=== PATIENT | female | born 1930 | race Caucasian/White ===

== ENCOUNTER 2020-06-09 14:04 | Emergency (ER) | payer OTHER, MEDICARE ==
[2020-06-09 14:15] VITALS: BMI 20.2
[2020-06-09 14:53] LABS: EOS % 0.8 % (0-4.5); HEMATOCRIT 34.7 % (32.4-45.2); HEMOGLOBIN 10.9 GM/dl (10.7-15.3); LYMPH % 17.2 % (8-40); MCH 29.2 pg (25.7-33.7); MCHC 31.6 g/dl (32.0-36.0); MEAN CELL VOLUME 92.4 fl (80-96); MEAN PLT VOLUME 8.5 fl (7.5-11.1); MONO % 3.5 % (3.8-10.2); NEUT % 77.5 % (42.8-82.8); PLATELET COUNT 278 K/MM3 (134-434); RBC 3.75 M/mm3 (3.60-5.2); RDW 12.8 % (11.6-15.6)
[2020-06-09 15:00] LABS: EPITHELIAL CELLS MODERATE /hpf
[2020-06-09 15:01] LABS: ALBUMIN 2.6 g/dl (3.4-5.0); BILIRUBIN,TOTAL 0.7 mg/dl (0.2-1); CALCIUM 9.6 mg/dl (8.5-10); CREATININE 1.5 mg/dl (0.55-1.3); POTASSIUM 4.4 mmol/L (3.5-5.1); TOT PROT 6.5 g/dl (6.4-8.2)
[2020-06-09] MEDS ORDERED: SODIUM CHLORIDE 500 ML IV STA (15:20)
[2020-06-09 16:47] VITALS: BP 159/90; PULSE 70; TEMP 98.6
== END 2020-06-09 18:07 | disposition home or self-care (01) ==
LOC: FER 14:04
PROC: 3E0337Z Introduction of Electrolytic and Water Balance Substance into Peripheral Vein, Percutaneous Approach (ICD-10-PCS; principal; 2020-06-09)
DX: N39.0 Urinary tract infection, site not specified (principal); E86.0 Dehydration; F03.90 Unspecified dementia, unspecified severity, without behavioral disturbance, psychotic disturbance, mood disturbance, and anxiety
CPT/HCPCS: 36415; 71045-TC-FY; 80053; 81003; 81015; 82550; 84484; 85025; 87086; 87186; 93005; 99285-25; C9803; U0003

== ENCOUNTER 2020-07-13 22:02 | Inpatient (IN) | payer OTHER, MEDICARE ==
[2020-07-13 22:35] VITALS: BMI 19.5
[2020-07-13] MEDS ORDERED: LIDOCAINE VISCOUS 2% ORAL/TOP 20 ML UNIT-DOSE CUP MM ONE (23:35)
[2020-07-13] MEDS ORDERED: MAG HYDROX/AL HYDROX/SIMETH 30 ML UNIT-DOSE CUP PO ONE (23:35)
[2020-07-13] MEDS ORDERED: LIDOCAINE VISCOUS 2% ORAL/TOP 20 ML UNIT-DOSE CUP ONE (23:39)
[2020-07-13] MEDS ORDERED: MAG HYDROX/AL HYDROX/SIMETH 30 ML UNIT-DOSE CUP ONE (23:39)
[2020-07-14] MEDS ORDERED: SODIUM CHLORIDE 1,000 ML IV STA (00:39)
[2020-07-14 01:11] LABS: BASO % 0.2 % (0-2.0); EOS % 0.3 % (0-4.5); HEMATOCRIT 27.6 % (32.4-45.2); LYMPH % 20.9 % (8-40); MCH 30.5 pg (25.7-33.7); MCHC 32.8 g/dl (32.0-36.0); MEAN CELL VOLUME 93.1 fl (80-96); MEAN PLT VOLUME 9.7 fl (7.5-11.1); NEUT % 74.6 % (42.8-82.8); PLATELET COUNT 226 K/MM3 (134-434); RBC 2.96 M/mm3 (3.60-5.2); RDW 15.4 % (11.6-15.6); WHITE BLOOD COUNT 15.8 K/mm3 (4.0-10.0)
[2020-07-14 01:17] LABS: ALBUMIN 2.8 g/dl (3.4-5.0); ANION GAP 15 MMOL/L (8-16); CHLORIDE 87 mmol/L (98-107); CO2 20 mmol/L (21-32); CREATININE 1.7 mg/dL (0.55-1.3); GLUCOSE,RANDOM 89 mg/dL (74-106); POTASSIUM 3.7 mmol/L (3.5-5.1); SGOT/AST 38 U/L (15-37); SGPT/ALT 7 U/L (13-61); SODIUM 121 mmol/L (136-145)
[2020-07-14 01:20] LABS: ALK PHOS 101 U/L (45-117); BILIRUBIN,TOTAL 0.6 mg/dL (0.2-1); TOT PROT 6.4 g/dl (6.4-8.2)
[2020-07-14] MEDS ORDERED: DEXTROSE 5%-NORMAL SALINE 1,000 ML IV SCH (02:15)
[2020-07-14 05:12] LABS: ANISOCYTOSIS 1+; MACROCYTOSIS 0; PLATELET ESTIMATE NORMAL
[2020-07-14] MEDS ORDERED: VANCOMYCIN 1 GM in D5W (PRE-DOCKED) 1,000 MG/250 ML IVPB ONE (06:28)
[2020-07-14] MEDS ORDERED: VANCOMYCIN 1 GRAM (PRE-DOCKED) 1,000 MG/250 ML BAG IVPB ONE (07:00)
[2020-07-14] MEDS: LEVOTHYROXINE NA 25 MCG TABLET (FP) PO SCH (07:30)
[2020-07-14 09:10] LABS: CALCIUM 8.1 mg/dl (8.5-10); CREATININE 1.2 mg/dl (0.55-1.3); MAGNESIUM 1.5 mg/dL (1.8-2.4); POTASSIUM 2.9 mmol/L (3.5-5.1)
[2020-07-14] MEDS: HEPARIN NA (PORCINE) 5,000 UNITS/ML 1ML VIAL SQ SCH ×2 (09:44→16:59)
[2020-07-14] MEDS ORDERED: MAGNESIUM SULF 50% (8.12 MEQ/2 ML-1 GM VIAL) IVPB ONE (10:42)
[2020-07-14] MEDS ORDERED: SODIUM CHLORIDE 1,000 ML IV SCH (10:45)
[2020-07-14] MEDS ORDERED: MAGNESIUM SULFATE IN WATER 2 GM/50 ML IVPB IVPB ONE (11:00)
[2020-07-14] MEDS: KCL 10 MEQ IVPB 10 MEQ/100 ML INFUS.BAG IVPB SCH ×3 (11:52→14:51)
[2020-07-14] MEDS ORDERED: POTASSIUM CHLORIDE ORAL LIQUID 20 MEQ/15 ML PO ONE ×2 (14:15→17:33)
[2020-07-14] MEDS: PANTOPRAZOLE 40 MG TABLET PO SCH (17:41)
[2020-07-15] MEDS: HEPARIN NA (PORCINE) 5,000 UNITS/ML 1ML VIAL SQ SCH ×3 (01:35→18:08)
[2020-07-15] MEDS: LEVOTHYROXINE NA 25 MCG TABLET (FP) PO SCH (06:26)
[2020-07-15 07:58] LABS: EOS % 2.1 % (0-4.5); HEMATOCRIT 24.5 % (32.4-45.2); HEMOGLOBIN 8.1 GM/dl (10.7-15.3); LYMPH % 31.5 % (8-40); MCH 30.9 pg (25.7-33.7); MCHC 33.2 g/dl (32.0-36.0); MEAN CELL VOLUME 93.1 fl (80-96); MONO % 5.6 % (3.8-10.2); NEUT % 60.2 % (42.8-82.8); PLATELET COUNT 175 K/MM3 (134-434); RBC 2.63 M/mm3 (3.60-5.2); RDW 14.9 % (11.6-15.6); WHITE BLOOD COUNT 7.6 K/mm3 (4.0-10.8)
[2020-07-15 09:42] LABS: ALBUMIN 2.4 g/dl (3.4-5.0); BILIRUBIN,TOTAL 0.8 mg/dl (0.2-1); CALCIUM 8.5 mg/dl (8.5-10); CREATININE 1.2 mg/dl (0.55-1.3); POTASSIUM 4.2 mmol/L (3.5-5.1); TOT PROT 4.7 g/dl (6.4-8.2)
[2020-07-15] MEDS ORDERED: HYDROCHLOROTHIAZIDE 12.5 MG CAPSULE (FP) PO SCH (10:00)
[2020-07-15] MEDS ORDERED: PATIENT'S OWN MEDICATION (NON-FORMULARY) (Valsartan/Hydrochlorothiazide [Valsartan-Hctz 32 PO SCH (10:00)
[2020-07-15] MEDS ORDERED: VALSARTAN 160 MG TABLET PO SCH (10:00)
[2020-07-15] MEDS: SERTRALINE HCL 25 MG TABLET (FP) PO SCH (11:04)
[2020-07-15] MEDS: MEMANTINE HCL 10 MG TABLET (FP) PO SCH (11:04)
[2020-07-15] MEDS: PANTOPRAZOLE 40 MG TABLET PO SCH (11:04)
[2020-07-16] MEDS: HEPARIN NA (PORCINE) 5,000 UNITS/ML 1ML VIAL SQ SCH ×2 (02:10→12:05)
[2020-07-16] MEDS: LEVOTHYROXINE NA 25 MCG TABLET (FP) PO SCH (06:23)
[2020-07-16 10:58] LABS: ACTIVATED PTT 66.6 SECONDS (25.2-36.5); INR 1.12 (0.82-1.09); PROTHROMBIN TIME (PATIENT) 12.4 SEC (10.2-13.0)
[2020-07-16 11:02] LABS: HEMATOCRIT 26.3 % (32.4-45.2); HEMOGLOBIN 8.9 GM/dl (10.7-15.3); MCH 31.5 pg (25.7-33.7); MEAN CELL VOLUME 92.6 fl (80-96); MEAN PLT VOLUME 8.9 fl (7.5-11.1); PLATELET COUNT 208 K/MM3 (134-434); RBC 2.84 M/mm3 (3.60-5.2); RDW 15.1 % (11.6-15.6); WHITE BLOOD COUNT 8.4 K/mm3 (4.0-10.8)
[2020-07-16 11:30] LABS: PLATELET ESTIMATE ADEQUATE
[2020-07-16 11:31] LABS: ANISOCYTOSIS FEW; OVALOCYTE FEW
[2020-07-16] MEDS: SERTRALINE HCL 25 MG TABLET (FP) PO SCH (12:05)
[2020-07-16] MEDS: MEMANTINE HCL 10 MG TABLET (FP) PO SCH (12:05)
[2020-07-16] MEDS: PANTOPRAZOLE 40 MG TABLET PO SCH (12:06)
[2020-07-16 12:18] LABS: CHLORIDE 103 mmol/L (98-107); SODIUM 136 mmol/L (136-145)
[2020-07-16 12:21] LABS: ALBUMIN 2.6 g/dl (3.4-5.0); ANION GAP 8 MMOL/L (8-16); BLOOD UREA NITROGEN 14.2 mg/dL (7-18); CALCIUM 9.1 mg/dL (8.5-10.1); CO2 25 mmol/L (21-32); GLUCOSE,RANDOM 91 mg/dL (74-106); MAGNESIUM 2.3 mg/dL (1.8-2.4)
[2020-07-16 12:24] LABS: CREATININE 1.2 mg/dL (0.55-1.3); SGOT/AST 18 U/L (15-37); SGPT/ALT 10 U/L (13-61)
[2020-07-16 12:26] LABS: BILIRUBIN,TOTAL 0.3 mg/dL (0.2-1); LDH 212 U/L (84-246); TOT PROT 5.7 g/dl (6.4-8.2)
[2020-07-16 12:27] LABS: ALK PHOS 105 U/L (45-117)
[2020-07-16 17:27] VITALS: BP 117/65; PULSE 75; TEMP 98
== END 2020-07-16 17:27 | disposition home or self-care (01) | DRG 391 ==
LOC: FER 22:02 → FM/S 07-14 04:05
PROVIDERS: ADMIT Internal Medicine; ATTEND Nurse Practitioner Acute Care
DX: K29.70 Gastritis, unspecified, without bleeding (principal); U07.1 COVID-19; E87.1 Hypo-osmolality and hyponatremia; N17.9 Acute kidney failure, unspecified; E03.9 Hypothyroidism, unspecified; G30.9 Alzheimer's disease, unspecified; F02.80 Dementia in other diseases classified elsewhere, unspecified severity, without behavioral disturbance, psychotic disturbance, mood disturbance, and anxiety; R13.10 Dysphagia, unspecified
CPT/HCPCS: 36415; 71250-TC; 74220-TC-FY; 76000-TC-FY; 80048; 80053; 82550; 82728; 83615; 83735; 84484; 85025; 85379; 85610; 85730; 86140; 87040; 87086; 93005; 99285-25; C9803; J1644; U0003

== ENCOUNTER 2020-07-19 19:15 | Emergency (ER) | payer OTHER, MEDICARE ==
[2020-07-19] MEDS ORDERED: ALPRAZolam 1 MG TABLET PO PRN (19:20)
[2020-07-19 19:30] VITALS: BP 182/68; PULSE 64; TEMP 97.2; BMI 19.5
[2020-07-19] MEDS ORDERED: ALPRAZolam 0.25 MG TABLET ONE (19:31)
== END 2020-07-19 20:48 | disposition home or self-care (01) ==
LOC: FER 19:15
DX: F41.0 Panic disorder [episodic paroxysmal anxiety] (principal)
CPT/HCPCS: 99283-25